=== PATIENT | female | born 1985 | race Caucasian/White ===

== ENCOUNTER 2018-11-26 17:24 | Emergency (ER) | payer MEDICAID, SELFPAY ==
[2018-11-26 17:44] VITALS: BP 113/72; PULSE 56; RESP 18; TEMP 36.6; O2SAT 100
--- NOTE | 2018-11-26 18:06 | ED.GENADUL_ITS ---
Discharge Plan Disposition Patient Disposition: HOME Condition: Stable Discharge Details Chief Complaint: Orthopedic Clinical Impression: Contusion of rib on left side Primary Care Provider: Manuel Merchant ED Provider: Giancarlo Ramirez Home Meds and New Rx's Prescriptions: No Action No Known Home Meds RF: 0 Discharge Instructions Additional Instructions: You can take 1000mg tylenol and 600mg ibuprofen every 6 hours for pain as needed If you are not better in a week see your primary care provider return to the emergency department if you have severe worsening of pain or difficulty breathing Medical Decision Making 33yo female who denies chronic medical problems states she tripped going backwards on ice over a week ago. Denies loc or hitting head. Has no headache, neck tenderness on rom, no anterior chest pain and has no abdominal pain or tenderenss on exam. She still has left upper posterior back pain. No midline pain. Has reproducible pain in the left lateral upper back, full rom of the left shoulder so doubt scapula fx. She has clear lungs on exam and is speaking in full sentences. Suspect rib fx vs contusion. I discussed this with the patient and she has decided to defer xray at this time. Given normal respiatroy exam doubt ptx and she has capacity to make her own decisions. I advised f/u with pcp and return if she changes her mind or if she worsens in any way. She has no abdominal tenderness on exam to suggest intrabdominal pathology so do not feel imaging of abdomen indicated at this time. Meets all criteria per qatari head ct rules to not image her head. No neck pain even on rom or palpation so do not feel imagign indicated Differential Diagnosis contusion, fx, dislocation HPI General Mode of arrival: ambulatory . Date/Time Provider Initiated Documentation: 11/26/18 17:43 . Limitations to Documentation: no limitations . Information obtained by: patient . History of Present Illness 33 year old F presents to the emergency department with the chief complaint of left upper posterior thoracic pain, described as moderate, with intensity rated at 5. Quality is described as aching, and is localized to the back. Patient reports no radiation. Patient started experiencing this week(s) (1) and it has been constant. No relieving factors improve symptom(s), No exacerbating factors reported . Patient did receive the following treatments prior to arrival, none Related Data Home Medications Medication Instructions Recorded Confirmed Unknown [No Known Home Meds] 11/26/18 11/26/18 Allergies Allergy/AdvReac Type Severity Reaction Status Date / Time fish derived AdvReac Mild itchy/lips Unverified 11/26/18 17:50 swell General Stated Complaint: Orthopedic JARAD: 4 Review of Systems Review of Systems All systems reviewed & are unremarkable except as noted in HPI and below Constitutional Denies chills, Denies fever(s) and Denies weakness ENT Denies change in voice Cardiovascular Denies chest pain and Denies dyspnea Respiratory Denies cough and Denies dyspnea Gastrointestinal Denies abdominal pain, Denies nausea and Denies vomiting Neurologic Denies weakness [facility] Medical History Previous section Surgical History section Ligation of fallopian tube (03/05/16) Social History Smoking and Tabacco status: Current-Occasional Exam Const General: no acute distress Orientation: alert HENMT Head: normal to inspection Ears: external ears normal General nose exam: external nose normal Mouth: moist mucous membranes Eyes General: appearance normal, both eyes and all related structures Neck Neck: normal visual inspection Resp Effort & Inspection: normal respiratory effort and able to speak in complete sentences Cardio Rate: regular rate Skin General skin exam: no rashes or lesions noted Neuro General: alert and oriented x3 Extrem General: normal to inspection Psych Mental Status: mental status grossly normal Course Vital Signs Temperature 36.6 C 11/26/18 17:44 Pulse 56 L 11/26/18 17:44 Respiratory Rate 18 11/26/18 17:44 Blood Pressure 113/72 11/26/18 17:44 Pulse Oximetry 100 11/26/18 17:44 Temperature 36.6 C 11/26/18 17:44 Temperature Source Temporal Artery Scan 11/26/18 17:44 Pulse 56 L 11/26/18 17:44 Respiratory Rate 18 11/26/18 17:44 Respiratory Effort Non-Labored 11/26/18 17:55 Respiratory Depth Normal 11/26/18 17:55 Respiratory Pattern Normal 11/26/18 17:55 Blood Pressure 113/72 11/26/18 17:44 Blood Pressure Position Sitting 11/26/18 17:44 Pulse Oximetry 100 11/26/18 17:44 Oxygen Delivery Method Room Air 11/26/18 17:44 Oxygen Flow Rate 0 11/26/18 17:44 Pain Level 6 11/26/18 17:55
[2018-11-26 18:15] VITALS: BP 113/72; PULSE 56; RESP 18; TEMP 36.6; O2SAT 100
== END 2018-11-26 18:12 | disposition home or self-care (01) ==
LOC: ER 18:11
PROVIDERS: Emergency Provider Emergency Medicine; PCP Internal Medicine
DX: S20.212A Contusion of left front wall of thorax, initial encounter (principal); W00.0XXA Fall on same level due to ice and snow, initial encounter
CPT/HCPCS: 99282

== ENCOUNTER 2018-12-01 11:20 | Emergency (ER) | payer MEDICAID, SELFPAY ==
[2018-12-01 11:39] VITALS: BP 125/82; PULSE 68; RESP 16; TEMP 36.4; O2SAT 98
--- NOTE | 2018-12-01 11:56 | DI.RAD_ITS ---
SYMPTOM/DIAGNOSIS: PAIN, S/P FALL LEFT SHOULDER: No fracture or dislocation is seen. The AC joint appears intact. There are no significant degenerative changes. IMPRESSION: Negative left shoulder. LEFT SCAPULA: There is no evidence of fracture. The AC joint and glenohumeral joint as well as ribs appear intact. IMPRESSION: Negative left scapula. PA AND LATERAL CHEST: The heart size is normal. The lungs are clear. No pneumothorax, infiltrate or effusion is seen. No rib or spine fracture is identified. IMPRESSION: Negative chest xray.
--- NOTE | 2018-12-01 11:58 | W.ED.GENAD ---
Discharge Plan Disposition Patient Disposition: HOME Condition: Stable Discharge Details Chief Complaint: Orthopedic Clinical Impression: Contusion of left scapula, Contusion of left chest wall, Contusion of left shoulder Reason For Visit: left shoulder pain Primary Care Provider: Unknown,Unknown ED Provider: Giancarlo Ramirez Home Meds and New Rx's Prescriptions: New gabapentin 300 mg capsule 300 mg PO TID Qty: 60 RF: 0 No Action ibuprofen 200 mg Tablet 400 mg PO PRN PRNRF: 0 Discharge Instructions Instructions: Contusion in Adults (ED) Additional Instructions: You can take 1000mg tylenol and 600mg ibuprofen every 6 hours for pain as needed call orthopedics for an appointment for follow up as needed Referrals: Tera Cobian MD [ [facility] STAFF PHYSICIAN] - Medical Decision Making 33 yo female comes in with cc of left shoulder pain since tripping in an ice hole 3 months ago. Denies loc and has no neck pain on exam. HAs pain in posterior shoulder, can't lift arm above 90 degrees due to the pain. Also states mild left rib pain, has clear lungs on exam. Suspect contusion vs rotator cuff injury but will image to eval for traumatic injuries xrays negative on my read and vrad read. Has no arm drop on testing so doubt rotator cuff injury at this time. Will have nurse give sling for comfort and have her f/u with pcp and also give number to ortho if pain continues Differential Diagnosis fx, sprain, strain, ptx, contusion Imaging Data Radiologic Study: Attestation: I personally reviewed and interpreted this imaging study as follows: Imaging: X-Ray My impression: no acute findings on cxr Radiologic Study #2: Attestation: I personally reviewed and interpreted this imaging study as follows: Imaging: X-Ray My impression: no acute findings on scapula xray Radiologic Study #3: Attestation: I personally reviewed and interpreted this imaging study as follows: Imaging: X-Ray My impression: no acute findings on left shoulder xray HPI General Mode of arrival: ambulatory. Date/Time Provider Initiated Documentation: 12/01/18 11:37. Limitations to Documentation: no limitations. Information obtained by: patient. History of Present Illness 33 year old F presents to the emergency department with the chief complaint of left shoulder pain, described as moderate, with intensity rated at 7. Quality is described as aching, and is localized to the left and lower extremity. Patient reports no radiation. Patient started experiencing this week(s) (3) and it has been constant. Rest improves symptom(s), Movement worsens symptoms . Patient notes no other symptoms.. Patient did receive the following treatments prior to arrival, none Related Data Home Medications Medication Instructions Recorded Confirmed gabapentin 300 mg PO TID #60 cap 12/01/18 ibuprofen 400 mg PO PRN PRN 12/01/18 12/01/18 Previous Rx's Medication Instructions Recorded gabapentin 300 mg PO TID #60 cap 12/01/18 Allergies Allergy/AdvReac Type Severity Reaction Status Date / Time fish derived AdvReac Mild itchy/lips Unverified 12/01/18 11:43 swell General Stated Complaint: Orthopedic JARAD: 4 Review of Systems Review of Systems All systems reviewed & are unremarkable except as noted in HPI and below Constitutional Denies chills, Denies fever(s) and Denies weakness Cardiovascular Denies chest pain and Denies dyspnea Respiratory Denies cough and Denies dyspnea Gastrointestinal Denies abdominal pain, Denies nausea and Denies vomiting Genitourinary Denies dysuria Musculoskeletal Denies joint swelling Integumentary/Breasts Denies rash Neurologic Denies weakness Endocrine Denies heat intolerance PFSH Surgical History section Ligation of fallopian tube (03/05/16) Social History Smoking and Tabacco status: Current-Occasional Exam Const General: no acute distress Orientation: alert HENTX Head: normal to inspection Ears: external ears normal General nose exam: external nose normal Mouth: moist mucous membranes Eyes General: appearance normal, both eyes and all related structures Neck Neck: normal visual inspection Resp Effort & Inspection: normal respiratory effort and able to speak in complete sentences Cardio Rate: regular rate Skin General skin exam: no rashes or lesions noted Neuro General: alert and oriented x3 Extrem General: normal to inspection Psych Mental Status: mental status grossly normal Course Vital Signs Temperature 36.4 C L 12/01/18 11:39 Pulse 68 12/01/18 11:39 Respiratory Rate 16 12/01/18 11:39 Blood Pressure 125/82 12/01/18 11:39 Pulse Oximetry 98 12/01/18 11:39 Temperature 36.4 C L 12/01/18 11:39 Temperature Source Temporal Artery Scan 12/01/18 11:39 Pulse 68 12/01/18 11:39 Respiratory Rate 16 12/01/18 11:39 Respiratory Effort 12/01/18 11:45 Blood Pressure 125/82 12/01/18 11:39 Pulse Oximetry 98 12/01/18 11:39 Oxygen Delivery Method Room Air 12/01/18 11:39 Oxygen Flow Rate 0 12/01/18 11:39 Pain Level 10 12/01/18 11:39 Lab/Test Results Lab/Test Results: POC- Test(urine) Negative
--- NOTE | 2018-12-01 12:01 | ED.GENADUL_ITS ---
Discharge Plan Disposition Patient Disposition: HOME Condition: Stable Discharge Details Chief Complaint: Orthopedic Clinical Impression: Contusion of left scapula, Contusion of left chest wall, Contusion of left shoulder Reason For Visit: left shoulder pain Primary Care Provider: Unknown,Unknown ED Provider: Giancarlo Ramirez Home Meds and New Rx's Prescriptions: New gabapentin 300 mg capsule 300 mg PO TID Qty: 60 RF: 0 No Action ibuprofen 200 mg Tablet 400 mg PO PRN PRNRF: 0 Discharge Instructions Instructions: Contusion in Adults (ED) Additional Instructions: You can take 1000mg tylenol and 600mg ibuprofen every 6 hours for pain as needed call orthopedics for an appointment for follow up as needed Referrals: Tera Cobian MD [ [facility] STAFF PHYSICIAN] - Medical Decision Making 33 yo female comes in with cc of left shoulder pain since tripping in an ice hole 3 months ago. Denies loc and has no neck pain on exam. HAs pain in posterior shoulder, can't lift arm above 90 degrees due to the pain. Also states mild left rib pain, has clear lungs on exam. Suspect contusion vs rotator cuff injury but will image to eval for traumatic injuries xrays negative on my read and vrad read. Has no arm drop on testing so doubt rotator cuff injury at this time. Will have nurse give sling for comfort and have her f/u with pcp and also give number to ortho if pain continues Differential Diagnosis fx, sprain, strain, ptx, contusion Imaging Data Radiologic Study: Attestation: I personally reviewed and interpreted this imaging study as follows: Imaging: X-Ray My impression: no acute findings on cxr Radiologic Study #2: Attestation: I personally reviewed and interpreted this imaging study as follows: Imaging: X-Ray My impression: no acute findings on scapula xray Radiologic Study #3: Attestation: I personally reviewed and interpreted this imaging study as follows: Imaging: X-Ray My impression: no acute findings on left shoulder xray HPI General Mode of arrival: ambulatory . Date/Time Provider Initiated Documentation: 12/01/18 11:37 . Limitations to Documentation: no limitations . Information obtained by: patient . History of Present Illness 33 year old F presents to the emergency department with the chief complaint of left shoulder pain, described as moderate, with intensity rated at 7. Quality is described as aching, and is localized to the left and lower extremity. Patient reports no radiation. Patient started experiencing this week(s) (3) and it has been constant. Rest improves symptom(s), Movement worsens symptoms . Patient notes no other symptoms.. Patient did receive the following treatments prior to arrival, none Related Data Home Medications Medication Instructions Recorded Confirmed gabapentin 300 mg PO TID #60 cap 12/01/18 ibuprofen 400 mg PO PRN PRN 12/01/18 12/01/18 Previous Rx's Medication Instructions Recorded gabapentin 300 mg PO TID #60 cap 12/01/18 Allergies Allergy/AdvReac Type Severity Reaction Status Date / Time fish derived AdvReac Mild itchy/lips Unverified 12/01/18 11:43 swell General Stated Complaint: Orthopedic JARAD: 4 Review of Systems Review of Systems All systems reviewed & are unremarkable except as noted in HPI and below Constitutional Denies chills, Denies fever(s) and Denies weakness Cardiovascular Denies chest pain and Denies dyspnea Respiratory Denies cough and Denies dyspnea Gastrointestinal Denies abdominal pain, Denies nausea and Denies vomiting Genitourinary Denies dysuria Musculoskeletal Denies joint swelling Integumentary/Breasts Denies rash Neurologic Denies weakness Endocrine Denies heat intolerance PFSH Surgical History section Ligation of fallopian tube (03/05/16) Social History Smoking and Tabacco status: Current-Occasional Exam Const General: no acute distress Orientation: alert HENND Head: normal to inspection Ears: external ears normal General nose exam: external nose normal Mouth: moist mucous membranes Eyes General: appearance normal, both eyes and all related structures Neck Neck: normal visual inspection Resp Effort & Inspection: normal respiratory effort and able to speak in complete sentences Cardio Rate: regular rate Skin General skin exam: no rashes or lesions noted Neuro General: alert and oriented x3 Extrem General: normal to inspection Psych Mental Status: mental status grossly normal Course Vital Signs Temperature 36.4 C L 12/01/18 11:39 Pulse 68 12/01/18 11:39 Respiratory Rate 16 12/01/18 11:39 Blood Pressure 125/82 12/01/18 11:39 Pulse Oximetry 98 12/01/18 11:39 Temperature 36.4 C L 12/01/18 11:39 Temperature Source Temporal Artery Scan 12/01/18 11:39 Pulse 68 12/01/18 11:39 Respiratory Rate 16 12/01/18 11:39 Respiratory Effort 12/01/18 11:45 Blood Pressure 125/82 12/01/18 11:39 Pulse Oximetry 98 12/01/18 11:39 Oxygen Delivery Method Room Air 12/01/18 11:39 Oxygen Flow Rate 0 12/01/18 11:39 Pain Level 10 12/01/18 11:39 Lab/Test Results Lab/Test Results: POC- Test(urine) Negative
[2018-12-01] MEDS: Acetaminophen 500 MG TAB 1000 MG PO (12:10)
--- NOTE | 2018-12-01 13:27 | DI.VRAD_ITS ---
EXAM: XR Chest, 2 Views EXAM DATE/TIME: 12/01/2018 11:58 AM CLINICAL HISTORY: 33 years old, female; Injury or trauma; Fall; Initial encounter; Blunt trauma (contusions or hematomas); Patient HX: Fall three weeks ago TECHNIQUE: XR of the chest, 2 views. COMPARISON: No relevant prior studies available. FINDINGS: Lungs: Hyperexpanded lung rae consistent with COPD. No consolidation. Pleural space: Unremarkable. No pleural effusion. No pneumothorax. Heart/Mediastinum: Unremarkable. No cardiomegaly. Bones/joints: Unremarkable. IMPRESSION: Hyperexpanded lung rae consistent with COPD Dictated and Authenticated by: Ammy Bhakta MD. Ordering:ROCKY Mondragon MD
--- NOTE | 2018-12-01 13:28 | DI.VRAD_ITS ---
EXAM: XR Left Scapula Complete EXAM DATE/TIME: 12/01/2018 11:58 AM CLINICAL HISTORY: 33 years old, female; Pain; Shoulder; Left TECHNIQUE: XR Left scapula complete. COMPARISON: No relevant prior studies available. FINDINGS: Bones/joints: Normal.There is no evidence of acute fracture. There is no evidence of malalignment or dislocation. Soft tissues: Normal. IMPRESSION: No acute findings. Dictated and Authenticated by: Ammy Bhakta MD. Ordering:ROCKY Mondragon MD
--- NOTE | 2018-12-01 13:29 | DI.VRAD_ITS ---
EXAM: XR Left Shoulder Complete, 2 or More Views EXAM DATE/TIME: 12/01/2018 12:58 PM CLINICAL HISTORY: 33 years old, female; Pain; Shoulder; Left TECHNIQUE: XR Left shoulder complete 2 or more views. COMPARISON: No relevant prior studies available. FINDINGS: Bones/joints: Normal.There is no evidence of acute fracture. There is no evidence of malalignment or dislocation. Soft tissues: Normal. IMPRESSION: No acute findings. Dictated and Authenticated by: Ammy Bhakta MD. Ordering:ROCKY Mondragon MD
== END 2018-12-01 13:46 | disposition home or self-care (01) ==
PROVIDERS: Emergency Provider Emergency Medicine
DX: S40.012A Contusion of left shoulder, initial encounter (principal); S20.212A Contusion of left front wall of thorax, initial encounter; W00.0XXA Fall on same level due to ice and snow, initial encounter
CPT/HCPCS: 99284; 71046; 73010; 73030; 99282; L3650

== ENCOUNTER 2020-10-02 12:17 | Emergency (ER) | payer MEDICAID, SELFPAY ==
--- NOTE | 2020-10-02 12:45 | DI.RAD_ITS ---
EXAM: XR KNEE RT 4V+ CLINICAL HISTORY: fall/pain. TECHNIQUE: 2D digital imaging was performed. COMPARISON: No exams were available for comparison FINDINGS: BONES: No acute fracture is present. No bony destructive lesion is seen. JOINTS: The knee is normally aligned. No joint effusion is seen. SOFT TISSUE: Normal. IMPRESSION: Unremarkable radiographs of the right knee. DATA REPOSITORY: RADIATION DOSE DELIVERED:
[2020-10-02 12:52] VITALS: BP 135/76; PULSE 78; RESP 16; TEMP 36.5; O2SAT 97
--- NOTE | 2020-10-02 13:54 | DI.VRAD_ITS ---
PROCEDURE INFORMATION: Exam: XR Right Knee Exam date and time: 10/02/2020 1:34 PM Age: 35 years old Clinical indication: Injury or trauma; Fall; Blunt trauma; Knee; Right TECHNIQUE: Imaging protocol: XR Right knee. Views: 4 or more views. COMPARISON: No relevant prior studies available. FINDINGS: Bones/joints: No acute fracture or dislocation. Soft tissues: Normal. IMPRESSION: No acute fracture or dislocation. Dictated and Authenticated by: Zeus Mendoza MD. Ordering:EVAN Hernandez MD
--- NOTE | 2020-10-02 13:59 | W.ED.GENAD ---
Discharge Plan Disposition Patient Disposition: HOME Condition: Stable Discharge Details Clinical Impression: Knee pain Primary Care Provider: Unknown,Unknown ED Provider: David Vera Home Meds and New Rx's Prescriptions: No Action No Known Home Meds RF: 0 Discharge Instructions Instructions: Knee Pain (ED) Additional Instructions: X-ray was read by radiology as unremarkable. [id number] Tylenol and/or Motrin as directed for discomfort. Wear knee brace as needed, advance activity as tolerated. Rest, elevate. Cool and/or warm compresses every 2 hours for 20 minutes. Please watch for new or worsening symptoms and return to the ER for any concerns. Please contact the orthopedic office on Sunday for prompt outpatient reevaluation. As we discussed her evaluation, physical therapy, and/or MRI may all be indicated if symptoms or not improving. Referrals: Enrike Manzano MD [ [facility] STAFF PHYSICIAN] - Discharge Data Discharge Date/Time-TO BE ENTERED AT DEPARTURE: 10/02/20 15:45 Medical Decision Making 35-year-old female who had a mechanical fall on [place]. Direct blow to the right knee, denies twisting. Clinically she has diffuse anterior and lateral discomfort with a small abrasion over the patella. No obvious deformity. Full extension, limited flexion secondary to discomfort. Neuro, vascular, tendon intact. Will obtain x-ray and reassess. Any right knee complete x-ray read by radiology as no acute fracture or dislocation. Discussed x-ray findings with patient and then discussed disposition. She does not want to use crutches. We initially tried a bulky compression wrapping using web roll and an Fer wrap however she did not feel as though this gave her enough support. This was removed and then we tried a long-leg knee immobilizer. Patient felt as though this was significantly more comfortable and useful. She will wear this as needed, advance activity as tolerated. We discussed resting, elevating, cool compresses every 2 hours for 20 minutes. Hqnn-gzi-ehfulgv Tylenol and/or Motrin as directed for discomfort. Encouraged to return to the ER for new or worsening symptoms. Otherwise she will contact the orthopedic group on Sunday for prompt outpatient reevaluation. Patient has no additional questions or concerns and is comfortable with this plan. Medical Records Medical records reviewed: Yes I reviewed the patient's medical records. HPI General Mode of arrival: ambulatory. Date/Time Provider Initiated Documentation: 10/02/20 12:48. Limitations to Documentation: no limitations. Information obtained by: patient. HPI Narrative: This is a 35-year-old female who denies significant past medical history. She states that 2 days ago she tripped over a corn hole board landing directly on her right knee. She reports the pain is moderate in nature worse with bearing weight. She is able to ambulate but with an antalgic gait. She denies any other injury. Denies numbness, tingling, weakness. She has taken uxwm-gdb-bhnbylt medication with minimal relief. She has crutches at home but she prefers not to use them because they hurt her armpits. Related Data Home Medications Medication Instructions Recorded Confirmed Unknown [No Known Home Meds] 10/02/20 10/02/20 Allergies Allergy/AdvReac Type Severity Reaction Status Date / Time fish derived AdvReac Mild itchy/lips Unverified 10/02/20 13:19 swell General Stated Complaint: Orthopedic JARAD: 4 Review of Systems Constitutional Constitutional: Denies weakness Musculoskeletal Musculoskeletal: Reports arthralgias, Denies numbness, Reports stiffness and Denies tingling Integumentary/Breasts Skin/Breast: Denies erythema Neurologic Neurologic: Denies numbness, Denies tingling and Denies weakness [facility] Medical History Previous section x2. Desires repeat c/s this . wants BTL Surgical History section [facility] 08/17/2010 Patrizia Sams RCS 2011 Patrizia Correa 03/05/16 [id number]. Ahmet Lino. 7lb 10oz [facility] Ligation of fallopian tube (03/05/16) @ time of RC/S. Social History Smoking/Tobacco Use Status: Current-Occasional Tobacco Type: cigarettes Smoking risk assessment performed?: Yes Alcohol Intake: current Alcohol Intake frequency: holidays/special occasions only Drug use: Occasionally Substance use type: marijuana Do you feel safe at home: Yes Do you feel safe in your relationship?: Yes Exam Const General: cooperative, healthy appearing, comfortable and no acute distress Orientation: alert and awake [facility] Head: normal to inspection, normocephalic and atraumatic Eyes General: appearance normal, both eyes and all related structures Conjunctivae: conjunctivae normal Sclera: sclerae normal Neck Neck: normal visual inspection, trachea midline and supple Resp Effort & Inspection: normal respiratory effort and able to speak in complete sentences Cardio Rate: regular rate Rhythm: regular rhythm Skin General skin exam: no rashes or lesions noted Neuro General: patient alert, patient awake, moves all extremities and no focal motor deficits Cognition: normal cognition Speech: speech normal Gait: antalgic Motor: muscle tone normal throughout Sensory Exam: no sensory deficits noted Extrem Left lower extremity: normal capillary refill and knee Details: tenderness, abnormal ROM (Limited flexion secondary to pain), knee ligament exam normal, abrasion and ecchymosis; no swelling and no deformity Knee images: 1. Abrasion 2. Diffuse discomfort to palpation. No crepitus. No erythema, warmth. No drainage. Neuro, vascular, tendon intact. Psych Appearance: grossly normal Mental Status: mental status grossly normal Course Vital Signs Vital signs: Vital Signs Temperature 36.5 C 10/02/20 12:52 Pulse 78 10/02/20 12:52 Respiratory Rate 16 10/02/20 12:52 Blood Pressure 135/76 10/02/20 12:52 Pulse Oximetry 97 10/02/20 12:52 Temperature 36.5 C 10/02/20 12:52 Temperature Source Skin 10/02/20 12:52 Pulse 78 10/02/20 12:52 Respiratory Rate 16 10/02/20 12:52 Respiratory Effort 10/02/20 12:57 Blood Pressure 135/76 10/02/20 12:52 Blood Pressure Position Sitting 10/02/20 12:52 Pulse Oximetry 97 10/02/20 12:52 Oxygen Delivery Method Room Air 10/02/20 12:52 Oxygen Flow Rate 0 10/02/20 12:52 Pain Level 7 10/02/20 12:52
[2020-10-02] MEDS: Ibuprofen 600 MG TAB (14:18)
[2020-10-02 15:43] VITALS: BP 120/90; PULSE 51; RESP 16; TEMP 36.5; O2SAT 100
== END 2020-10-02 15:45 | disposition home or self-care (01) ==
PROVIDERS: Emergency Provider Physician Assistant
DX: M25.561 Pain in right knee (principal); W01.198A Fall on same level from slipping, tripping and stumbling with subsequent striking against other object, initial encounter
CPT/HCPCS: 29505; 73564

== ENCOUNTER 2022-01-04 15:39 | Outpatient (CLI) | payer MEDICAID, SELFPAY ==
--- NOTE | 2022-01-04 | DI.US_ITS ---
Exam(s) US LOWER EXTREMITY VENOUS RT EXAM: US LOWER EXTREMITY VENOUS RT CLINICAL HISTORY: RT LEG PAIN, M79.604, ? DVT,SWELLING. TECHNIQUE: Ultrasound performed using standard protocol. COMPARISON: US OB US 2-3 TRIMESTER TRANSABD*P from 10/18/2015 FINDINGS: Duplex venous ultrasound was performed according to the usual protocol. The deep veins are freely com pressible throughout and there is normal flow augmentation with manual calf compression. 2D and Doppl er evaluation are unremarkable. Note is made of localized superficial thrombus in a varicose superficial vein medial to the knee. IMPRESSION: No evidence of deep venous thrombosis of the right lower extremity. DATA REPOSITORY:
== END 2022-01-04 15:59 ==
PROVIDERS: Visit Provider Physician Assistant Medical
DX: M79.604 Pain in right leg (principal)
CPT/HCPCS: 93971